=== PATIENT | female | born 1965 | race Caucasian/White ===

== ENCOUNTER 2016-10-12 10:59 | Emergency (ER) | payer OTHER ==
--- NOTE | 2016-10-12 12:46 | ED ORDER SUMMARY ---
..... Patient: GONZALES LOBO OrderSheet [facility] VisitID: [id number] [address] [place] [address] 51y, F Registration Date/Time: 10/12/2016 ORDER SHEET Weight: 66.2 kg (stated) Allergies: Sulfa Antibiotics GENERAL ORDERS: Chest 2V Urgent (11:16 10/12/2016 [facility]) (Ack 11:18 LTapper) (11:48 LTapper) Weed Controller (Continuous) [facility] (11:18 MWinterer R.N.) UA-Culture if indicated Urgent (11:10/12/2016 ) (Ack 11:18 LTapper) (11:44 LTapper) Cardiac Panel Stat (11:10[facility]12/[address] (Ack 11:18 LTapper) (11:59 MWinterer R.N.) BNP Urgent (11:10/12/2016 son ) (Ack 11:18 LTapper) (11:59 MWinterer R.N.) Pulse oximeter [facility]12[facility] (11:18 MWinterer R.N.) EKG - ER Stat (11:10/12/[address] [facility]) (Ack 11:18 LTapper) (11:24 RKaruga) Vitals (11:16 10/12/2016 [facility]) (Ack 11:18 LTapper) (11:18 MWinterer R.N.) MEDICATION ORDERS: Nitrofurantoin PO 100 mg (NOW) (12:22 10/12/2016 [facility]) (Ack 12:30 MWinterer R.N.) (12:50 MWinterer R.N.) IV FLUIDS: IV NS : initial bolus 500 mL (1000 mL/hr), then 250 mL/hr for X2 (NOW) (11:16 10/12/2016 [facility]) (Ack 11:18 MWinterer R.N.) (11:50 MWinterer R.N.) ORDER SHEET NOTES: [Electronically signed by Neeta Serrano R.N. (13:15 10/12/2016)] [Electronically signed by Eldon Jamil DO (16:34 10/13/2016)] [Electronically locked/signed by Neeta Serrano R.N. (13:15 10/12/2016)]
--- NOTE | 2016-10-12 12:46 | ED NURSING NOTES ---
Clinical Report - Nurses [facility] [address] [place] [address] 10/12/2016 11:01 Patient: GONZALES LOBO TRIAGE Acuity: LEVEL 3. Chief Complaint: (high blood pressure). Alert. No acute distress. SEPSIS SCREEN: Sepsis Screen. Negative (no infection suspected/documented). WENCESLAO COMA SCORE: Wenceslao Coma Scale: 15- eyes open spontaneously (4); best verbal response- oriented x 4 (5); best motor response- obeys commands (6). --11:13 Neeta Serrano R.N. 11:08 10/12/16. BP: 225/106. HR: 62. RR: 16. O2 saturation: 99% on room air. Temp: 98.7 F (oral). Pain level now: 0/10. --11:13 Neeta Serrano R.N. Weight: 66.2 kg stated. Height/Length: 64 inches Per Patient. BMI: 25.1. --11:11 Neeta Serrano R.N. Medications Atenolol Oral 25 mg, daily. --11:09 Neeta Serrano R.N. Medication/allergy information source: the patient. --11:13 Neeta Serrano R.N. Allergies Sulfa Antibiotics. --11:10 Neeta Serrano R.N. History Arrived by private vehicle. Historian: patient. Unaccompanied. Primary physician (Macy). This started yesterday. Onset. (1 days ago). 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 PAST MEDICAL HX: Last normal menstrual period was 1 week ago. SOCIAL HX: Former smoker, end date 2008. No alcohol use or drug use. FALL RISK ASSESSMENT: Fall risk assessment completed. No fall risk identified. NUTRITIONAL RISK ASSESSMENT: The nutritional risk assessment revealed no deficiencies. FUNCTIONAL ASSESSMENT: Functional assessment: no impairments noted. LEARNING NEEDS ASSESSMENT: The learning needs assessment revealed no barriers. SKIN INTEGRITY ASSESSMENT: Skin integrity risk assessment completed. No skin integrity risk identified. --11:13 Neeta Serrano R.N. PROBLEMS: Hypertension. --11:10 Neeta Serrano R.N. ADDITIONAL SURGERIES: Bladder Suspension. --11:10 Neeta Serrano R.N. Assessment GENERAL / NEURO / PSYCH: Alert. Oriented X 4. Appears in no acute distress. Patient appears calm and cooperative. RESPIRATORY: Respirations not labored. CVS: Capillary refill less than 2 seconds. GI / : Abdomen soft. SKIN: Mucous membranes are pink. Skin is warm and dry. --11:13 Neeta Serrano R.N. Interventions ID band on patient. To treatment room. --11:13 Neeta Serrano R.N. PHYSICAL ASSESSMENT 11:13 10/12/16. Ambulatory to room. GENERAL / NEURO / PSYCH: Alert. Oriented X 4. Appears in no acute distress. HEENT: Pupils equal, round and reactive to light. No facial asymmetry noted. Mucous membranes are pink. RESPIRATORY: Respirations not labored. CVS: Normal sinus rhythm noted. GI / : Abdomen soft and nontender. SKIN: Skin intact. Skin is warm and dry. Normal skin turgor. --11:13 Neeta Serrano R.N. NURSING PROGRESS NOTES teletypesetter monitor, pulse oximeter and NIBP monitor placed on patient; monitor alarms on. Patient gowned. Two patient identifiers checked. Call light placed in reach. Side rails up. Bed placed in lowest position. Brakes of bed on. Patient ready for evaluation- chart flagged and ED physician notified. --11:14 Neeta Serrano R.N. 11:14 10/12/16. The initial plan of care for this patient has been created This plan of care was discussed with the patient. --11:14 Neeta Serrano R.N. EKG time: (11:21). EKG was performed by a tech and shown to the ED physician. --11:24 John Radha 11:49 10/12/2016 Site #1 started via IV in the left hand with an 20g angiocath, with aseptic technique and good blood return. --11:49 Neeta Serrano R.N. 11:50 10/12/2016 Started bag #1 1000 mL IV Fluids IV NS (Saline); at 999 mL/hr over 30 minute(s) via site #1 via IV pump. Allergies verified and confirmed 5 rights. IV patency established. IV site checked: no pain, redness, or swelling. IV flushed thoroughly pre- and post-medication administration. --11:50 Neeta Serrano R.N. 11:50 10/12/16. BP: 214/93. HR: 58. RR: 12. O2 saturation: 100%. --11:50 Neeta Serrano R.N. 12:20 10/12/2016 IV Fluids IV NS via IV site #1 Rate Changed: bag #1 decreased to 250 mL/hr via IV pump. IV patency established. IV site checked: no pain, redness, or swelling. IV flushed thoroughly. Confirmed 5 Rights. --13:14 Neeta Serrano R.N. 12:50 10/12/2016 Nitrofurantoin PO 100 mg given. Allergies verified and confirmed 5 rights. --12:50 Neeta Serrano R.N. 13:00 10/12/2016 Site #1 removed upon discharge. Catheter intact. Manual pressure and bandage applied. --13:15 Neeta Serraon R.N. 13:04 10/12/2016 IV Fluids IV NS Discontinued: bag #1 STOPPED upon discharge. Total amount infused: 625 mL. IV patency established. IV site checked: no pain, redness, or swelling. IV flushed thoroughly. --13:14 Neeta Serrano R.N. DISPOSITION / DISCHARGE Departure time: 13:00 Oct 12 2016. Condition at departure: improved and stable. No learning barriers present. Discharge instructions provided and reviewed with the patient. Patient verbalized understanding. Written instructions provided in Austrian. The patient was discharged by the physician. She was discharged home. She left the Emergency Department ambulatory and via private vehicle. --13:12 Neeta Serrano R.N. 13:11 10/12/16. BP: 218/100. BP. ED physician notified. HR: 57. RR: 17. O2 saturation: 98% on room air. Temp: 98 F (oral). Pain level now: 0/10. --13:12 Neeta Serrano R.N. Locked/Released at 10/12/2016 13:15 by Neeta Serrano R.N.
--- NOTE | 2016-10-12 12:46 | ED CLINICAL REPORT ---
Clinical Report - Physicians/Mid Levels [facility] [address] [place] [address] 10/12/2016 11:01 Patient: GONZALES LOBO Time Seen: 11:15. Arrived- By private vehicle. Historian- patient. HISTORY OF PRESENT ILLNESS Chief Complaint: BLOOD PRESSURE ELEVATED. This started yesterday and is still present. It was gradual in onset and has been waxing/waning. At its maximum, severity described as moderate. When seen in the E.D., severity described as moderate. No headache, visual disturbance, muscle aches or weakness. No decreased urine output. Similar symptoms previously: Recent medical care: The patient was seen recently in a clinic. Seen for similar symptoms. REVIEW OF SYSTEMS Last normal menstrual period- 1 week ago. No fever, difficulty breathing, chest pain, abdominal pain or nausea. No vomiting, diarrhea, black stools, bloody stools or difficulty with urination. No skin rash, back pain, headache, blackouts or double vision. No difficulty with ambulation. All systems otherwise negative, except as recorded above. PAST HISTORY See nurses notes. Hypertension. PCP: Dr Cavazos. Surgeries: Bladder suspension. Medications: Atenolol Oral 25 mg, daily. Allergies: Sulfa Antibiotics. SOCIAL HISTORY Former smoker, end date 2008. No alcohol use or drug use. ADDITIONAL NOTES The nursing notes have been reviewed. PHYSICAL EXAM Vital Signs: 10/12/2016 11:08 BP: 225/106. HR: 62. RR: 16. O2 saturation: 99%. Temp: 98.7 F. Pain level now: 0/10. Appearance: Alert. No acute distress. Eyes: Eyes normal inspection. No scleral icterus or pale conjunctivae. ENT: Pharynx normal. Neck: Normal inspection. Neck supple. No JVD. CVS: Normal heart rate and rhythm. Heart sounds normal. Pulses normal. Respiratory: No respiratory distress. Breath sounds normal. Abdomen: No visible injury. Soft and nontender. No mass. Back: Normal inspection. Skin: Skin warm and dry. Normal skin color. Normal skin turgor. Extremities: Extremities exhibit normal ROM. No lower extremity edema. Neuro: Oriented X 3. No motor deficit. No sensory deficit. LABS, X-RAYS, AND EKG EKG: EKG time: (11:21). Normal sinus rhythm. Rate: 60. Left atrial enlargement (possible). Normal LISA. Incomplete RBBB. Nondiagnostic Q waves in lead V1 and V2 (tiny R in V2). No LVH. The study has been interpreted contemporaneously by me. The EKG appears to be a good tracing. Rhythm Strip #1: Normal sinus rhythm. Regular rhythm. Narrow QRS complexes. No ectopy. Non-specific ST segment / T-wave abnormalities. Chest X-ray: No acute disease. Normal lung markings present. Normal heart size. Mediastinum normal. Great vessels normal. No infiltrate. No fracture. No bony lesion present. Views: PA and lateral. Technique: good. The X-rays were interpreted contemporaneously by me. Laboratory Tests: UA-Culture if indicated: (LANE: 10/12/2016 11:40) ( [facility] Final results Test Result Flag Units (Reference) URINE COLOR YELLOW URINE APPEARANCE CLEAR URINE GLUCOSE NEGATIVE (NEGATIVE) URINE BILIRUBIN NEGATIVE (NEGATIVE) URINE KETONE NEGATIVE (NEGATIVE) URINE SPECIFIC GRAVITY <= 1.005 L (1.010-1.030) URINE PH 5.5 (5.0-8.0) URINE PROTEIN NEGATIVE (NEGATIVE) URINE UROBILINOGEN 0.2 EU/dL (0.2-1.0) URINE NITRITE NEGATIVE (NEGATIVE) URINE BLOOD NEGATIVE (NEGATIVE) URINE LEUK ESTERASE TRACE (NEGATIVE) URINE RBC 0-1 rbc/hpf (0-1) URINE WBC 1-3 wbc/hpf (0-1) URINE EPITHELIAL CELLS 3-5 EPI/hpf (0-5) URINE BACTERIA MODERATE (2+ TO 3+) (NONE SEEN) URINE COMMENT CULTURE INDICATED URINE CULTURES ARE SET-UP BASED ON THE FOLLOWING CRITERIA:POSITIVE NITRITEPOSITIVE LEUKOCYTE ESTERASEGREATER THAN 10 WHITE BLOOD CELLSMODERATE (2+) OR GREATER BACTERIA CBC w Diff: (LANE: 10/12/2016 11:58) ( [facility] 12[facility]) Final results Test Result Flag Units (Reference) WHITE BLOOD COUNT 8.1 K/uL (4.5-11.5) RED BLOOD COUNT 4.78 M/uL (4.00-5.20) HEMOGLOBIN 13.7 gm/dL (12.0-16.0) HEMATOCRIT 41.8 % (36.0-46.0) MEAN CELL VOLUME 88 fL (80-100) MEAN CORPUSCULAR HGB 29 pg (26-34) MEAN CORPUSCULAR HGB CONC 33 g/dL (31-37) RED CELL DISTRIBUTION WIDTH 12.9 % (11.6-14.8) PLATELET COUNT 233 K/uL (150-400) NEUTROPHIL % 58.3 % (50-75) LYMPH % 26.1 % (25-40) MONO % 6.8 % (3-14) EOSINOPHIL % 8.0 H % (0-4) BASOPHIL % 0.8 % (0-2) BNP: (LANE: 10/12/2016 11:58) ( [facility] 10/12/2016 12:28) Final results Test Result Flag Units (Reference) B-TYPE NATRIURETIC PEPTIDE 102 H pg/ml (5-100) CHEM 13 PANEL: (LANE: 10/12/2016 11:58) ( [facility] 10/12/2016 13:05) Final results Test Result Flag Units (Reference) GLUCOSE 101 mg/dL (70-110) BUN 10 mg/dL (7-18) CREATININE 0.6 mg/dL (0.6-1.3) Estimated GFR >60 mL/min Estimated GFR- >60 mL/min Note: Persistent reduction over 3 months in eGFR<60 mL/min/1.73 m2 defines CKD. Patients with eGFR values>=60 mL/min/1.73 m2 may also have CKD if evidence ofpersistent proteinuria. Additional information may be foundat www.kidney.org. SODIUM 141 mmol/L (136-145) POTASSIUM 4.0 mmol/L (3.5-5.1) CHLORIDE 102 mmol/L (98-107) CARBON DIOXIDE 28 mmol/L (21-32) CALCIUM 8.9 mg/dL (8.5-10.1) TOTAL PROTEIN 7.6 g/dL (6.4-8.2) ALBUMIN 4.1 g/dL (3.3-5.0) BILIRUBIN, TOTAL 0.4 mg/dL (0.0-1.0) ALKALINE PHOSPHATASE 70 U/L (46-116) AST (SGOT) 13 L U/L (15-37) ALT (SGPT) 19 U/L (12-78) CPK 50 U/L (24-260) TROPONIN I <0.05 ng/mL (0.00-1.5) TROPONIN REFERENCE RANGE:<0.1 NEGATIVE0.1-1.5 INDETERMINANT>1.5 POSITIVE MAGNESIUM 1.9 mg/dL (1.8-2.4) Culture, Urine: (LANE: 10/12/2016 11:40) ( [facility] 10/13/2016 11:20) IP Test Result Flag Units (Reference) CULTURE, URINE DATE: 10/13/16 PRELIM REPORT: PRELIMINARY REPORT #1 VERY EARLY GROWTH: VERY EARLY GROWTH: CULTURE TOO YOUNG FOR WORKUP-REINCUBATED . Pulse Oximetry: 10/12/2016 11:08 O2 saturation: 99%. (FIO2 - room air). Interpretation: normal. PROGRESS AND PROCEDURES Course of Care: Nitrofurantoin 100 mg PO given. Normal Saline 1 liter IVPB given. Asymtomatic HTN. Pt with evient UTI. Labs otherwise unremarkable (including renal function andno proteinuria). I eill have her double the dose if her atenolol while monitoring her HR nd BP at home with close out pt follow up and / or return to ED for new or worsening symptoms or any concerns - given Ss and Sx of HTN to watch for and report to PCP snd / or return to the ED. Goal of slowly decreasing BP and tx of concurrent infection / UTI. Patient/family counseled. Old ED records reviewed. (from [facility] [place]). Disposition: Discharged. Condition: stable and improved. CLINICAL IMPRESSION Uncontrolled essential hypertension. Acute urinary tract infection with cystitis. INSTRUCTIONS Do not work for two days. Drink plenty of fluids. Warnings: Further evaluation is necessary in order to recheck abnormal lab, obtain test results, conduct further tests and assess the possibility of serious illness. It is very important to follow up with a physician. GENERAL WARNINGS: Return or contact your physician immediately if your condition worsens or changes unexpectedly, if not improving as expected, or if other problems arise. Your Current Medications: CHANGE THE FOLLOWING MEDICATIONS TO: Atenolol Oral : 25 mg 2x a day. Prescription Medications: Macrobid 100 mg: Take 1 capsule orally every 12 hours for 7 days. No refills. Substitution is permissible. Follow-up: Follow up with your doctor [facility] [place] in two days. (Electronically signed by Eldon Jamil DO 10/13/2016 16:34)
--- NOTE | 2016-10-12 12:46 | ED NURSING NOTES ---
Clinical Report - Nurses [facility] [address] [place] [address] 10/12/2016 11:01 Patient: GONZALES LOBO TRIAGE Acuity: LEVEL 3. Chief Complaint: (high blood pressure). Alert. No acute distress. SEPSIS SCREEN: Sepsis Screen. Negative (no infection suspected/documented). WENCESLAO COMA SCORE: Wenceslao Coma Scale: 15- eyes open spontaneously (4); best verbal response- oriented x 4 (5); best motor response- obeys commands (6). --11:13 Neeta Serrano R.N. 11:08 10/12/16. BP: 225/106. HR: 62. RR: 16. O2 saturation: 99% on room air. Temp: 98.7 F (oral). Pain level now: 0/10. --11:13 Neeta Serrano R.N. Weight: 66.2 kg stated. Height/Length: 64 inches Per Patient. BMI: 25.1. --11:11 Neeta Serrano R.N. Medications Atenolol Oral 25 mg, daily. --11:09 Neeta Serrano R.N. Medication/allergy information source: the patient. --11:13 Neeta Serrano R.N. Allergies Sulfa Antibiotics. --11:10 Neeta Serrano R.N. History Arrived by private vehicle. Historian: patient. Unaccompanied. Primary physician (Macy). This started yesterday. Onset. (1 days ago). 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 PAST MEDICAL HX: Last normal menstrual period was 1 week ago. SOCIAL HX: Former smoker, end date 2008. No alcohol use or drug use. FALL RISK ASSESSMENT: Fall risk assessment completed. No fall risk identified. NUTRITIONAL RISK ASSESSMENT: The nutritional risk assessment revealed no deficiencies. FUNCTIONAL ASSESSMENT: Functional assessment: no impairments noted. LEARNING NEEDS ASSESSMENT: The learning needs assessment revealed no barriers. SKIN INTEGRITY ASSESSMENT: Skin integrity risk assessment completed. No skin integrity risk identified. --11:13 Neeta Serrano R.N. PROBLEMS: Hypertension. --11:10 Neeta Serrano R.N. ADDITIONAL SURGERIES: Bladder Suspension. --11:10 Neeta Serrano R.N. Assessment GENERAL / NEURO / PSYCH: Alert. Oriented X 4. Appears in no acute distress. Patient appears calm and cooperative. RESPIRATORY: Respirations not labored. CVS: Capillary refill less than 2 seconds. GI / : Abdomen soft. SKIN: Mucous membranes are pink. Skin is warm and dry. --11:13 Neeta Serrano R.N. Interventions ID band on patient. To treatment room. --11:13 Neeta Serrano R.N. PHYSICAL ASSESSMENT 11:13 10/12/16. Ambulatory to room. GENERAL / NEURO / PSYCH: Alert. Oriented X 4. Appears in no acute distress. HEENT: Pupils equal, round and reactive to light. No facial asymmetry noted. Mucous membranes are pink. RESPIRATORY: Respirations not labored. CVS: Normal sinus rhythm noted. GI / : Abdomen soft and nontender. SKIN: Skin intact. Skin is warm and dry. Normal skin turgor. --11:13 Neeta Serrano R.N. NURSING PROGRESS NOTES elementary school librarian, pulse oximeter and NIBP monitor placed on patient; monitor alarms on. Patient gowned. Two patient identifiers checked. Call light placed in reach. Side rails up. Bed placed in lowest position. Brakes of bed on. Patient ready for evaluation- chart flagged and ED physician notified. --11:14 Neeta Serrano R.N. 11:14 10/12/16. The initial plan of care for this patient has been created This plan of care was discussed with the patient. --11:14 Neeta Serrano R.N. EKG time: (11:21). EKG was performed by a tech and shown to the ED physician. --11:24 John Radha 11:49 10/12/2016 Site #1 started via IV in the left hand with an 20g angiocath, with aseptic technique and good blood return. --11:49 Neeta Serrano R.N. 11:50 10/12/2016 Started bag #1 1000 mL IV Fluids IV NS (Saline); at 999 mL/hr over 30 minute(s) via site #1 via IV pump. Allergies verified and confirmed 5 rights. IV patency established. IV site checked: no pain, redness, or swelling. IV flushed thoroughly pre- and post-medication administration. --11:50 Neeta Serrano R.N. 11:50 10/12/16. BP: 214/93. HR: 58. RR: 12. O2 saturation: 100%. --11:50 Neeta Serrano R.N. 12:20 10/12/2016 IV Fluids IV NS via IV site #1 Rate Changed: bag #1 decreased to 250 mL/hr via IV pump. IV patency established. IV site checked: no pain, redness, or swelling. IV flushed thoroughly. Confirmed 5 Rights. --13:14 Neeta Serrano R.N. 12:50 10/12/2016 Nitrofurantoin PO 100 mg given. Allergies verified and confirmed 5 rights. --12:50 Neeta Serrano R.N. 13:00 10/12/2016 Site #1 removed upon discharge. Catheter intact. Manual pressure and bandage applied. --13:15 Neeta Serrano R.N. 13:04 10/12/2016 IV Fluids IV NS Discontinued: bag #1 STOPPED upon discharge. Total amount infused: 625 mL. IV patency established. IV site checked: no pain, redness, or swelling. IV flushed thoroughly. --13:14 Neeta Serrano R.N. DISPOSITION / DISCHARGE Departure time: 13:00 Oct 12 2016. Condition at departure: improved and stable. No learning barriers present. Discharge instructions provided and reviewed with the patient. Patient verbalized understanding. Written instructions provided in Kenyan. The patient was discharged by the physician. She was discharged home. She left the Emergency Department ambulatory and via private vehicle. --13:12 Neeta Serrano R.N. 13:11 10/12/16. BP: 218/100. BP. ED physician notified. HR: 57. RR: 17. O2 saturation: 98% on room air. Temp: 98 F (oral). Pain level now: 0/10. --13:12 Neeta Serrano R.N. Locked/Released at 10/12/2016 13:15 by Neeta Serrano R.N.
--- NOTE | 2016-10-12 12:46 | ED ORDER SUMMARY ---
..... Patient: GONZALES LOBO OrderSheet [facility] VisitID: [id number] [address] [place] [address] 51y, F Registration Date/Time: 10/12/2016 ORDER SHEET Weight: 66.2 kg (stated) Allergies: Sulfa Antibiotics GENERAL ORDERS: Chest 2V Urgent (11:16 10/12/2016 [facility] (Ack 11:18 LTapper) (11:48 LTapper) Superintendent Construction (Continuous) (11:10[facility]12/2016 [facility] (11:18 MWinterer R.N.) UA-Culture if indicated Urgent (11:10/12/2016 ) (Ack 11:18 LTapper) (11:44 LTapper) Cardiac Panel Stat [facility] (Ack 11:18 LTapper) (11:59 MWinterer R.N.) BNP Urgent (11:10/12/2016 son ) (Ack 11:18 LTapper) (11:59 MWinterer R.N.) Pulse oximeter (11:10/12/2016 [facility] (11:18 MWinterer R.N.) EKG - ER Stat (11:10/12/2016 [facility]) (Ack 11:18 LTapper) (11:24 RKaruga) Vitals (11:16 10/12/2016 [facility] (Ack 11:18 LTapper) (11:18 MWinterer R.N.) MEDICATION ORDERS: Nitrofurantoin PO 100 mg (NOW) (12:22 10/12/2016 [facility] (Ack 12:30 MWinterer R.N.) (12:50 MWinterer R.N.) IV FLUIDS: IV NS : initial bolus 500 mL (1000 mL/hr), then 250 mL/hr for X2 (NOW) (11:16 10/12/2016 [facility] (Ack 11:18 MWinterer R.N.) (11:50 MWinterer R.N.) ORDER SHEET NOTES: [Electronically signed by Neeta Serrano R.N. (13:15 10/12/2016)] [Electronically signed by Eldon Jamil DO (16:34 10/13/2016)] [Electronically locked/signed by Neeta Serrano R.N. (13:15 10/12/2016)]
--- NOTE | 2016-10-12 13:07 | DIAGNOSTIC IMAGING REPORT ---
PROCEDURE: XR CHEST 2 VIEW INDICATION: HTN TECHNIQUE: PA and lateral views. COMPARISON: None. FINDINGS: Allowing for overlying wires and electrodes, lungs are clear. Heart and mediastinum are normal. There are mild degenerative changes of the thoracic spine. IMPRESSION: 1. Negative chest.
--- NOTE | 2016-10-13 16:35 | ED MAR SUMMARY ---
..... Medication Administration Record [facility] [address] [place] [address] Patient: GONZALES LOBO Visit ID: [id number] 51y, F Weight: 66.2 kg Height/Length: 64 in BMI: 25.1 ALLERGIES: Sulfa Antibiotics Start 11:50 10/12/2016 Neeta Serrano R.N., Stop 13:04 10/12/2016 Neeta Serrano R.N. Medication Administered: IV NS (SALINE), Dose: IV Fluids over 30 minute(s), Rate: 999 mL/hr, Dispensed: 1000 mL bag, Site: #1 left hand. Medication Ordered: IV NS : initial bolus 500 mL (1000 mL/hr), then 250 mL/hr for X2 (NOW). Given 12:50 10/12/2016 Neeta Serrano R.N. Medication Administered: NITROFURANTOIN [PO], Dose: 100 mg PO. Medication Ordered: Nitrofurantoin PO 100 mg (NOW).
--- NOTE | 2016-10-13 16:35 | ED MAR SUMMARY ---
..... Medication Administration Record [facility] [address] [place] [address] Patient: GONZALES LOBO Visit ID: [id number] 51y, F Weight: 66.2 kg Height/Length: 64 in BMI: 25.1 ALLERGIES: Sulfa Antibiotics Start 11:50 10/12/2016 Neeta Serrano R.N., Stop 13:04 10/12/2016 Neeta Serrano R.N. Medication Administered: IV NS (SALINE), Dose: IV Fluids over 30 minute(s), Rate: 999 mL/hr, Dispensed: 1000 mL bag, Site: #1 left hand. Medication Ordered: IV NS : initial bolus 500 mL (1000 mL/hr), then 250 mL/hr for X2 (NOW). Given 12:50 10/12/2016 Neeta Serrano R.N. Medication Administered: NITROFURANTOIN [PO], Dose: 100 mg PO. Medication Ordered: Nitrofurantoin PO 100 mg (NOW).
--- NOTE | 2016-10-13 16:35 | ED MED RECONCILIATION SUMMARY ---
Patient: GONZALES LOBO Medication Reconciliation Report [facility] VisitID: [id number] [address] [place] [address] 51y, F Registration Date/Time: 10/12/2016 Weight: 66.2 kg Height/Length: 64 in. BMI: 25.1 ALLERGIES: Sulfa Antibiotics The patient's Home Medications are listed below: CHANGE THE FOLLOWING MEDICATIONS TO: Atenolol Oral : 25 mg 2x a day The source(s) of the original Home Medication information: patient The following Medications were given to the patient in the Emergency Department: IV NS IV Fluids bolus 0, then 999 mL/hr, administered: 10/12/2016 11:50:00 AM Nitrofurantoin [PO] PO 100 mg, administered: 10/12/2016 12:50:00 PM The following Medications were prescribed to the patient: Macrobid 100 mg: Take 1 capsule orally every 12 hours for 7 days. No refills. Substitution is permissible. -- Eldon Jamil,
--- NOTE | 2016-10-13 16:35 | ED DISCHARGE INSTRUCTIONS ---
Patient: GONZALES LOBO General Instructions [facility] VisitID: [id number] [place] [address] 51y, [place] Registration Date/Time: 10/12/2016 Uncontrolled essential hypertension. Acute urinary tract infection with cystitis. INSTRUCTIONS Do not work for two days. Drink plenty of fluids. Warnings: Further evaluation is necessary in order to recheck abnormal lab, obtain test results, conduct further tests and assess the possibility of serious illness. It is very important to follow up with a physician. GENERAL WARNINGS: Return or contact your physician immediately if your condition worsens or changes unexpectedly, if not improving as expected, or if other problems arise. Your Current Medications: CHANGE THE FOLLOWING MEDICATIONS TO: Atenolol Oral : 25 mg 2x a day. Prescription Medications: Macrobid 100 mg: Take 1 capsule orally every 12 hours for 7 days. No refills. Substitution is permissible. Follow-up: Follow up with your doctor [facility] in two days. ADDITIONAL INFORMATION High Blood Pressure --Established High Blood Pressure (Hypertension) is a chronic disease. The cause is unknown in most cases. It can usually be controlled with lifestyle changes and/or medicines. Symptoms of high blood pressure may include headache, dizziness, visual changes, chest pain and shortness of breath. Sometimes it causes no symptoms at all. However, even if there are no symptoms, untreated high blood pressure increases the risk of heart attack, also known as acute myocardial infarction, or AMI, and stroke. It is a serious health risk and should not be ignored. A normal blood pressure is 120/80 or less. The first (top) number is the "systolic" pressure. The second (bottom) number is the "diastolic" pressure. Hypertension exists when either the top number is 140 or higher, OR the bottom number is 90 or higher on repeated measurements. Home Care: All patients with high blood pressure should do the following to lower their pressure. If you are on medicines, then these methods may reduce or eliminate your need for medicines in the future. Begin a weight loss program if you are overweight. Reduce your salt intake. Avoid high salt foods (olives, pickles, smoked meats, salted potato chips, etc.). Do not add salt to your food at the table. Use only small amounts of salt when cooking. Begin an exercise program. Discuss with your doctor what type of exercise program would be best for you. It doesn't have to be difficult. Even brisk walking for 20 minutes three times a week is a good form of exercise. Avoid medicines which contain heart stimulants. This includes many cold and sinus decongestant pills and sprays as well as diet pills. Check the warnings about hypertension on the label. Stimulants such as amphetamine or cocaine could be lethal for someone with hypertension. Never take these. Limit your caffeine intake or switch to caffeine-free products. Stop smoking. If you are a long-time smoker, this can be hard. Enroll in a stop-smoking program to improve your chance of success. Learning how to handle stress better is an important part of any program to lower blood pressure. Learn about relaxation methods such as meditation, yoga or biofeedback. If medicines were prescribed, take them exactly as directed. Missing doses may cause your blood pressure get out of control. Consider buying an automatic blood pressure machine (available at most pharmacies). Use this to monitor your blood pressure at home and report the results to your doctor. Follow Up: Regular visits to your own physician for blood pressure checks and medicine adjustment is an important part of your care. Make a follow-up appointment as directed by our staff. Get Prompt Medical Attention if any of the following occur: Chest pain or shortness of breath Severe headache Throbbing or rushing sound in the ears Nosebleed Sudden severe abdominal pain Extreme drowsiness, confusion or fainting Dizziness or vertigo (dizziness with spinning sensation) Weakness of an arm or leg or one side of the face Difficulty with speech or vision Bladder Infection,Female (Adult) A bladder infection ("cystitis" or "UTI") usually causes a constant urge to urinate and a burning when passing urine. Urine may be cloudy, smelly or dark. There may be pain in the lower abdomen. A bladder infection occurs when bacteria from the vaginal area enter the bladder opening (urethra). This can occur from sexual intercourse, wearing tight clothing, dehydration and other factors. Home Care: Drink lots of fluids (at least 6-8 glasses a day, unless you must restrict fluids for other medical reasons). This will force the medicine into your urinary system and flush the bacteria out of your body. Avoid sexual intercourse until your symptoms are gone. Avoid caffeine, alcohol and spicy foods. These can irritate the bladder. A bladder infection is treated with antibiotics. You may also be given Pyridium (generic = phenazopyridine) to reduce the burning sensation. This medicine will cause your urine to become a bright orange color. The orange urine may stain clothing. You may wear a pad or panty-liner to protect clothing. Preventing Future Infections: Always wipe from front to back after a bowel movement. Keep the genital area clean and dry. Drink plenty of fluids each day to avoid dehydration. Both sexual partners should wash before intercourse. Urinate right after intercourse to flush out the bladder. Wear cotton underwear and cotton-lined panty hose; avoid tight-fitting pants. If you are on control pills and are having frequent bladder infections, discuss with your doctor. Follow Up: Return to this facility or see your doctor if ALL symptoms are not gone after three days of treatment. Get Prompt Medical Attention if any of the following occur: Fever of 100.4F (38C) or higher, or as directed by your healthcare provider No improvement by the third day of treatment Increasing back or abdominal pain Repeated vomiting; unable to keep medicine down Weakness, dizziness or fainting Vaginal discharge Pain, redness or swelling in the labia (outer vaginal area) Nitrofurantoin, Nitrofurantoin, Macrocrystalline Oral capsule What is this medicine? NITROFURANTOIN (jacob rooney) is an antibiotic. It is used to treat urinary tract infections. How should I use this medicine? Take this medicine by mouth with a glass of water. Follow the directions on the prescription label. Take this medicine with food or milk. Take your doses at regular intervals. Do not take your medicine more often than directed. Do not stop taking except on your doctor's advice. Talk to your dust sampler regarding the use of this medicine in children. While this drug may be prescribed for selected conditions, precautions do apply. What side effects may I notice from receiving this medicine? Side effects that you should report to your doctor or health physician assistant primary care as soon as possible: allergic reactions like skin rash or hives, swelling of the face, lips, or tongue chest pain cough difficulty breathing dizziness, drowsiness fever or infection joint aches or pains pale or blue-tinted skin redness, blistering, peeling or loosening of the skin, including inside the mouth tingling, burning, pain, or numbness in hands or feet unusual bleeding or bruising unusually weak or tired yellowing of eyes or skin Side effects that usually do not require medical attention (report to your doctor or health physician assistant primary care if they continue or are bothersome): dark urine diarrhea headache loss of appetite nausea or vomiting temporary hair loss What may interact with this medicine? antacids containing magnesium trisilicate probenecid quinolone antibiotics like ciprofloxacin, lomefloxacin, norfloxacin and ofloxacin sulfinpyrazone What if I miss a dose? If you miss a dose, take it as soon as you can. If it is almost time for your next dose, take only that dose. Do not take double or extra doses. Where should I keep my medicine? Keep out of the reach of children. Store at room temperature between 15 and 30 degrees C (59 and 86 degrees F). Protect from light. Throw away any unused medicine after the expiration date. What should I tell my health care provider before I take this medicine? They need to know if you have any of these conditions: anemia diabetes [id number] dehydrogenase deficiency kidney disease liver disease lung disease other chronic illness an unusual or allergic reaction to nitrofurantoin, other antibiotics, other medicines, foods, dyes or preservatives or trying to get breast-feeding What should I watch for while using this medicine? Tell your doctor or health physician assistant primary care if your symptoms do not improve or if you get new symptoms. Drink several glasses of water a day. If you are taking this medicine for a long time, visit your doctor for regular checks on your progress. If you are diabetic, you may get a false positive result for sugar in your urine with certain brands of urine tests. Check with your doctor. You have been given the following additional information: Hypertension, Established Bladder Infection, Female (Adult) Nitrofurantoin, Nitrofurantoin, Macrocrystalline Oral capsule Do not work for two days. (Electronically signed by Eldon Jamil DO 10/13/2016 16:34)
--- NOTE | 2016-10-13 16:35 | ED MED RECONCILIATION SUMMARY ---
Patient: GONZALES LOBO Medication Reconciliation Report [facility] VisitID: [id number] [address] [place] [address] 51y, F Registration Date/Time: 10/12/2016 Weight: 66.2 kg Height/Length: 64 in. BMI: 25.1 ALLERGIES: Sulfa Antibiotics The patient's Home Medications are listed below: CHANGE THE FOLLOWING MEDICATIONS TO: Atenolol Oral : 25 mg 2x a day The source(s) of the original Home Medication information: patient The following Medications were given to the patient in the Emergency Department: IV NS IV Fluids bolus 0, then 999 mL/hr, administered: 10/12/2016 11:50:00 AM Nitrofurantoin [PO] PO 100 mg, administered: 10/12/2016 12:50:00 PM The following Medications were prescribed to the patient: Macrobid 100 mg: Take 1 capsule orally every 12 hours for 7 days. No refills. Substitution is permissible. -- Eldon Jamil,
== END 2016-10-12 13:00 | disposition home or self-care (01) ==
LOC: ED SRH 10:59
DX: I10 Essential (primary) hypertension (principal); N30.00 Acute cystitis without hematuria; Z79.899 Other long term (current) drug therapy; Z88.2 Allergy status to sulfonamides
CPT/HCPCS: 90004; 90074; 90100; 90469; 90616; 91320; 92610; 92720; 95059